=== PATIENT | male | born 1970 | race Caucasian/White ===

== ENCOUNTER 2024-12-06 08:01 | Outpatient (AMB) | payer BC, SELFPAY ==
[2024-12-06 08:30] VITALS: BP 112/77; PULSE 74; RESP 19; TEMP 36.6; O2SAT 95; BMI 34.7
--- NOTE | 2024-12-06 08:30 | ORTHONT_ITS ---
Vital signs 12/06/24 08:30 Height 1.8 m Height Method Stated Weight 112.945 kg Weight Measurement Method Standing Scale BMI 34.7 BP 112/77 Blood Pressure Source Automatic Cuff Blood Pressure Location Left Upper Arm Position Sitting Respiration 19 Pulse 74 Pulse Source Monitor Temp 97.8 F Temp Source Temporal Artery Scan Pulse Oximetry (%) 95 Oxygen Delivery Method Room Air Med/Allergies Allergies & Medications Allergies No Known Allergies Allergy (Verified 12/06/24 08:30) Medication Reconciliation celecoxib 200 mg capsule 200 mg PO QDAY 12/06/24 [History Confirmed 12/06/24] empagliflozin 25 mg tablet (Jardiance) 25 mg PO QAM 12/06/24 [History Confirmed 12/06/24] meloxicam 7.5 mg tablet 7.5 mg PO QDAY #45 tabs 12/06/24 [Rx] sitagliptin phosphate 50 mg-metformin 1,000 mg tablet (Janumet) 1 tab PO BID 12/06/24 [History Confirmed 12/06/24] Exam Exam Patient is in no acute distress and is cooperative with the examination today. Breathing is nonlabored. In no respiratory distress. Bilateral extremities were evaluated and demonstrates sensation intact to light touch. Palpable pedal pulses are present. No significant edema is present. Bilateral hips were examined. The patient has no pain with log roll of the hips. Internal rotation to 30 degrees and external rotation to 30 degrees is painless. Negative FADIR. The left knee was examined. The left knee is in varus alignment. Range of motion from 0-115 degrees. Knee is stable to varus and valgus as well as AP translation with <5mm. Patient has a negative McMurrays. There is no pain with patellofemoral compression and no crepitus noted. The knee is tender to palpation medially. The right knee was also examined. The right knee is in varus alignment. Range of motion from 0-120 degrees. Knee is stable to varus and valgus as well as AP translation with <5mm. Patient has a negative McMurrays. There is no pain with patellofemoral compression and no crepitus noted. The knee is tender to palpation medially. The patient has x-ray reports that demonstrate bilateral joint space narrowing. It says there is [id number] arthritis but I have no way to actually physically see this at this time Assessment and Plan Problem List (1) Arthritis of both knees: Status: Acute Plan: Patient is a pleasant 54-year-old male with bilateral knee pain and bilateral knee arthritis. He is failed conservative treatment. His hemoglobin A1c is 8.6 according to the referral. He has not had this repeated in over 5 months. I would like to see what his current hemoglobin A1c is given that it is too high for surgery at this time. We will also get bilateral knee x-rays. 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 ([id number]) MA Intake Visit Data Collection New Patient or Established: New Patient (never been to [facility]) Reason for Visit:: BILATERAL KNEE PAIN Seen by Clinical Staff ONLY (RN/MA): No [place] Drawer Required: Yes PCP or OBGYN visit in last 3 months: Yes Hx Now: No Do You Feel Safe at Home: Yes Authorities Contacted: N/A Questionairres Past Medical History Past Medical History Have you ever been diagnosed with any of the following: Neurological Problems Seizures: No Cardiology Problems Congestive Heart Failure: No Edema: No Cellulitis: Yes (RIGHT LOWER EXTREMITY BRUISING C/O ITCHY JONATHAN 03/04 MD VISIT) Respiratory Problems Chronic Obstructive Pulmonary Disease (COPD): No Tuberculosis: No Pulmonary Embolism: No Sleep Apnea: No Smoking: No Smoking Exposure: No Stomache/Intestinal Problems Hepatitis: No Genital/Urinary Problems Renal Disease: No Endocrine Problems Diabetes Mellitus Type 1: No Diabetes Mellitus Type 2: Yes (STOP MED 08/04 PO) Other Problems Hospitalization: No Shingles: No Falls: Yes (JONATHAN 03/04 MD VISIT) Blood Transfusions: No Blood Transfusion Reaction: No Anesthesia Reactions: No Chemotherapy: No Radiation Therapy: No MRSA: No Chicken Pox: No Measles: No Mumps: No Cancer: No Surgical History Pacemaker: No Subjective Visit Visit for: new patient and knee Immunization / Flu Flu Vaccine in the Last 12 Months: No Flu Vaccine Exclusion Criteria: No Exclusion Criteria History of Present Illness Chief complaint: bl knee pain Patient is a 54-year-old male with bilateral knee pain worse on the right. He reports that is interfering with his ability to work and he had a prior injection in the past. He is also on Celebrex with minimal relief. We will get new cortisone injections today. He has done home therapy for 2 months. Personal History Occupation: [employer] Pain Pain level (0-10): 7 Pain duration: WITH MOVEMENT Pain location: inside (medial) and anterior Pain quality: sharp, dull and aching Pain timing: night, increases with activity and stairs Associated signs & symptoms: numbness, weakness and stiffness Ambulatory data Ambulatory device: none Treatments Number of previous injections: 1 Improvement with previous injections: No Improvement with PT: No Improvement with NSAIDS: no Review of Systems Review of Systems: All systems negative unless otherwise noted in HPI.
--- NOTE | 2024-12-06 08:33 | XR_ITS ---
Examination: Bilateral knees 2 views Right lateral knee left lateral knee 2 views Bilateral axial knees single view TECHNIQUE: Bilateral AP knees single view, bilateral PA knees single view, flexion Standing right lateral knee left lateral knee 2 views Bilateral axial knees single view Exam date and time: December 06, 2024 0852 hours INDICATIONS: Bilateral knee pain 3 months FINDINGS: Moderate osteopenia Severe narrowing, [id number], medial joint spaces bilaterally Bilateral advanced osteoarthritis patellofemoral joints No fractures IMPRESSION: Severe narrowing, yciy-yr-rary, medial joint spaces bilaterally Bilateral advanced osteoarthritis patellofemoral joints
== END 2024-12-06 09:14 | disposition home or self-care (01) ==
LOC: HODSRG 08:01
PROVIDERS: PCP Family Medicine; Referring Provider Family Medicine; Supervising Provider Orthopaedic Surgery Adult Reconstructive Orthopaedic Surgery; Visit Provider Orthopaedic Surgery Adult Reconstructive Orthopaedic Surgery
DX: M17.0 Bilateral primary osteoarthritis of knee (principal); M25.562 Pain in left knee; M25.561 Pain in right knee; E11.9 Type 2 diabetes mellitus without complications
CPT/HCPCS: 73564; 99204; G0463

== ENCOUNTER 2025-01-01 10:50 | Outpatient (AMB) | payer BC, SELFPAY ==
--- NOTE | 2025-01-01 11:01 | PD.ORTHCLVIS ---
Vital signs 01/01/25 11:02 Height 1.8 m Height Method Stated Weight 115.836 kg Weight Measurement Method Standing Scale BMI 35.7 BP 118/77 Blood Pressure Source Automatic Cuff Blood Pressure Location Right Upper Arm Position Sitting Respiration 18 Pulse 88 Pulse Source Monitor Temp 98.4 F Temp Source Temporal Artery Scan Pulse Oximetry (%) 95 Oxygen Delivery Method Room Air Med/Allergies Allergies & Medications Allergies No Known Allergies Allergy (Verified 01/01/25 11:03) Medication Reconciliation celecoxib 200 mg capsule 200 mg PO QDAY 12/06/24 [History Confirmed 01/01/25] empagliflozin 25 mg tablet (Jardiance) 25 mg PO QAM 12/06/24 [History Confirmed 01/01/25] meloxicam 7.5 mg tablet 7.5 mg PO QDAY #45 tabs 12/06/24 [Rx Confirmed 01/01/25] sitagliptin phosphate 50 mg-metformin 1,000 mg tablet (Janumet) 1 tab PO BID 12/06/24 [History Confirmed 01/01/25] Exam Exam Patient is in no acute distress and is cooperative with the examination today. Breathing is nonlabored. In no respiratory distress. Bilateral extremities were evaluated and demonstrates sensation intact to light touch. Palpable pedal pulses are present. No significant edema is present. Bilateral hips were examined. The patient has no pain with log roll of the hips. Internal rotation to 30 degrees and external rotation to 30 degrees is painless. Negative FADIR. The left knee was examined. The left knee is in varus alignment. Range of motion from 0-115 degrees. Knee is stable to varus and valgus as well as AP translation with <5mm. Patient has a negative McMurrays. There is no pain with patellofemoral compression and no crepitus noted. The knee is tender to palpation medially. The right knee was also examined. The right knee is in varus alignment. Range of motion from 0-120 degrees. Knee is stable to varus and valgus as well as AP translation with <5mm. Patient has a negative McMurrays. There is no pain with patellofemoral compression and no crepitus noted. The knee is tender to palpation medially. The patient has Ryma-me-duae arthritis bilaterally. There is medial joint space narrowing with mild Assessment and Plan Problem List (1) Arthritis of both knees: Status: Acute Plan: Patient is a pleasant 54-year-old male with bilateral knee pain and bilateral knee arthritis. He is failed conservative treatment. His hemoglobin a1c is improved at 7.6. He has failed conservative treatment coding multiple injections, anti-inflammatories, and home exercises. The right side is worse and we will proceed with total knee replacement on the right The nature and purpose of the total knee replacement, alternative method(s) of treatment, the material risks involved, and the possibility of complications were fully explained to the patient. The patient does NOT have any of the following contraindications to TKA: - Active infection of the knee joint, OR - Active systemic bacteremia, OR - Active skin infection or open wound at surgical site, OR - Neuropathic arthritis, OR - Severe, rapidly progressive neurological disease, OR - Severe medical condition that makes risks of surgery outweigh the potential benefit The patient was told the most common risks and complications associated with a total knee replacement include, but are not limited to: blood clots in the leg, fatal pulmonary embolism, dislocation of the prosthesis, intraoperative and postoperative fractures of the femur or tibia, infection, failure of the prosthesis or grafting materials, complications from anesthesia, reactions to blood transfusions, postoperative leg length inequality, instability of the knee replacement, nerve damage or injury, vascular injury, delayed wound healing, infection, other injury or even . In addition, there are risks associated with anesthesia given during this operation. Also, the patient was told that after undergoing a total knee replacement there may still be persistent pain or disability. The patient was informed that the success of this operation in part depends upon the mechanical devices which are going to be implanted and that these devices can fail or malfunction, and may need to be repaired or replaced and there are no guarantees as to the longevity of this device or its parts and that it or its parts could fail prematurely. The patient was also notified that during the course of surgery, there may be a need to use bone graft from donors, and that any bone graft used will be carefully screened for communicable diseases, including AIDS, hepatitis, Homero-Creutzfeldt, or other diseases, but despite the screening procedures, there is a small chance that they could contract one of these diseases. Finally, the patient was asked to follow completely and fully with all advice and recommended treatments, and that recovery and ultimate outcome are affected by their compliance with recommended treatment. We discussed the risks, benefits and treatment alternatives, and the patient is interested in proceeding with surgery. We will try to set this up as expeditiously as possible. Office Procedures GNS Level of Care Nursing/Assessment Patient Status: Established Patient Nursing Assessment/Reassesment: Medication Reconciliation, Update PMH in EMR and Vital Signs Coordination of Care: Complex Care and Chronic Disease 1-5, Consent,records obtained, informed consent, Education Simp Pt/Fam, Results/Orders obtained and Staff clarify orders Special Needs: Language special needs ([place] ) Established Patient Charge Established Patient Point Assignment: 90 Established Patient Point Charge: EP Level 3 (80-115) MA Intake Visit Data Collection New Patient or Established: Established Patient (seen at [facility] within 3 years) Reason for Visit:: F/U XRAY-A1C-7.6 Seen by Clinical Staff ONLY (RN/MA): No [place] Worker Required: Yes PCP or OBGYN visit in last 3 months: Yes Hx Now: No Do You Feel Safe at Home: Yes Authorities Contacted: N/A Questionairres Past Medical History Past Medical History Have you ever been diagnosed with any of the following: Neurological Problems Seizures: No Cardiology Problems Congestive Heart Failure: No Edema: No Cellulitis: Yes (RIGHT LOWER EXTREMITY BRUISING C/O ITCHY JONATHAN 03/04 MD VISIT) Respiratory Problems Chronic Obstructive Pulmonary Disease (COPD): No Tuberculosis: No Pulmonary Embolism: No Sleep Apnea: No Smoking: No Smoking Exposure: No Stomache/Intestinal Problems Hepatitis: No Genital/Urinary Problems Renal Disease: No Endocrine Problems Diabetes Mellitus Type 1: No Diabetes Mellitus Type 2: Yes (STOP MED 08/04 PO) Other Problems Hospitalization: No Shingles: No Falls: Yes (03/04 MD VISIT) Blood Transfusions: No Blood Transfusion Reaction: No Anesthesia Reactions: No Chemotherapy: No Radiation Therapy: No MRSA: No Chicken Pox: No Measles: No Mumps: No Cancer: No Surgical History Pacemaker: No Subjective Visit Visit for: follow up visit and knee (RT KNEE ) Immunization / Flu Flu Vaccine in the Last 12 Months: Yes Flu Vaccine Exclusion Criteria: No Exclusion Criteria and Already Received History of Present Illness Chief complaint: bl knee pain Patient is a 54-year-old male with bilateral knee pain worse on the right. He reports that is interfering with his ability to work and he had a prior injection in the past. He is also on Celebrex with minimal relief. He has now had 3 injections in total with minimal relief. He has been doing home exercises at home for 2 years. Personal History Occupation: [employer] Red flag PMH: smoker (QUIT 2 MONTHS AGO ) and none Additional comments: A1C- 7.6 Pain Pain level (0-10): 9 Pain duration: 3 MONTHS Pain location: inside (medial) and anterior Pain quality: sharp, dull and aching Pain timing: night, increases with activity and stairs Associated signs & symptoms: numbness, weakness and stiffness Ambulatory data Ambulatory device: none Walking distance (minutes): 1 Treatments Number of previous injections: 2 Improvement with previous injections: No Number of Physical Therapy sessions: 0 Improvement with PT: No Improvement with NSAIDS: n/a Review of Systems Review of Systems: All systems negative unless otherwise noted in HPI.
[2025-01-01 11:02] VITALS: BP 118/77; PULSE 88; RESP 18; TEMP 36.9; O2SAT 95; BMI 35.7
== END 2025-01-01 11:21 | disposition home or self-care (01) ==
PROVIDERS: PCP Family Medicine; Referring Provider Family Medicine; Supervising Provider Orthopaedic Surgery Adult Reconstructive Orthopaedic Surgery; Visit Provider Orthopaedic Surgery Adult Reconstructive Orthopaedic Surgery
DX: M17.0 Bilateral primary osteoarthritis of knee (principal); M25.562 Pain in left knee; M25.561 Pain in right knee; E11.9 Type 2 diabetes mellitus without complications
CPT/HCPCS: 99213; G0463